=== PATIENT | female | born 1970 | race Caucasian/White ===

== ENCOUNTER → 2018-11-11 | Outpatient (CLI) | payer OTHER ==
--- NOTE | 2018-11-14 11:12 | REP ---
MRI CERVICAL SPINE WITHOUT CONTRAST: HISTORY: Trapezius muscle spasm of the neck. Pain in the thoracic spine. No comparison cervical spine imaging. The patient reports injury 2 weeks prior. Right-sided neck pain. TECHNIQUE: Sagittal and axial T1- and T2-weighted scans are acquired in the usual fashion with and without fat saturation. Sequences include spin echo, turbo spin-echo, and STIR imaging sequences. MRI FINDINGS: Magnetic field susceptibility artifact is seen emanating from ventral discectomy fusion plating at the C5-C7 levels. There is straightening of the cervical spine. Cervical cord is normal in coarse, caliber and signal intensity. There is right-sided uncovertebral spurring at C4-5 producing neural foraminal narrowing. There is mild uncovertebral spurring on the right at C3-4 as well. There is some residual disc bulging to the left of midline at the C6-7. Mild central bulging is seen at C5-6. No other abnormality. IMPRESSION: Status post ventral discectomy and fusion plating C5-C7. There is prominent right-sided neural foraminal narrowing at C4-5 and mild right-sided neural foraminal narrowing at C3-4 due to uncovertebral spurring and disc bulging. Canal size is borderline at C4-5. Electronically Signed by Jordon Ocampo MD 11/14/2018 11:25 A
--- NOTE | 2018-11-14 11:14 | REP ---
MRI THORACIC SPINE WITHOUT CONTRAST: HISTORY: Trapezius muscle spasm. Right-sided neck pain. Thoracic back pain. The patient reports injury 2 weeks prior. No comparison thoracic spine imaging. TECHNIQUE: Sagittal and axial T1- and T2-weighted scans are acquired in the usual fashion with and without fat saturation. Sequences include spin echo, turbo spin-echo, and STIR imaging sequences. MRI FINDINGS: There is an 8 mm benign hemangioma in the T7 vertebral body. Cortical and medullary bone signal intensity are otherwise normal. There is minimal discogenic spurring along the anterior margin of the thoracic spine. No thoracic disc herniation is seen. There is minimal disc bulging at T6-T7. No cord compressive lesion is seen. No foraminal lesion is observed. There is a small thoracic cord syrinx cavity. This is present from the T6-7 disc level through the T8 level. It measures 3 mm in greatest anteroposterior dimension and there is very slight expansion of the cord at this level. No mass lesion is visible on noncontrast MR images. The tip of the conus medullaris is normal in position and appearance at T12. No other intramedullary lesion is seen. There is no evidence of epidural fluid collection or mass. Study is otherwise unremarkable. IMPRESSION: Small syrinx cavity in the mid thoracic spine at the T7 level. Consider postcontrast MR imaging of the thoracic spine. Minimal discogenic changes. Otherwise negative. Electronically Signed by Jordon Ocampo MD 11/14/2018 11:25 A
== END ==
LOC: M RAD 16:38
PROVIDERS: ATTEND Nurse Practitioner Family
DX: M62.838 Other muscle spasm (principal); M54.2 Cervicalgia; Z98.890 Other specified postprocedural states; D18.09 Hemangioma of other sites; M51.24 Other intervertebral disc displacement, thoracic region; G95.0 Syringomyelia and syringobulbia; Z98.1 Arthrodesis status

== ENCOUNTER → 2020-02-21 | Outpatient (CLI) | payer BC ==
--- NOTE | 2020-02-21 21:15 | REPVR ---
PROCEDURE INFORMATION: Exam: MR Lumbar Spine Without Contrast. Exam date and time: 02/21/2020 6:43 PM Age: 49 years old Clinical indication: Low back pain; Additional info: Lumbago with sciatica TECHNIQUE: Imaging protocol: Multiplanar magnetic resonance images of the lumbar spine without intravenous contrast. COMPARISON: No relevant prior studies available. FINDINGS: Vertebrae: Normal alignment. Mild degenerative endplate edema in the L4 superior endplate. Otherwise normal marrow signal. Spinal cord: Conus medullaris terminates in normal position at L1. Conus medullaris is unremarkable. L1-L2: No disc herniation or spinal stenosis. No significant foraminal stenosis. Mild facet DJD. L2-L3: No disc herniation or spinal stenosis. No significant foraminal stenosis. Mild facet DJD. L3-L4: No disc herniation or spinal stenosis. No significant foraminal stenosis. Mild facet DJD. L4-L5: No disc herniation or spinal stenosis. No significant foraminal stenosis. Mild facet DJD. L5-S1: No disc herniation or spinal stenosis. No significant foraminal stenosis. Mild facet DJD. Soft tissues: Unremarkable. IMPRESSION: 1. Mild multilevel facet DJD. 2. No disc herniation or spinal stenosis. Electronically signed by: Kun Shen On 02/21/2020 21:15:01 PM
== END ==
LOC: M RAD 17:32
DX: M54.41 Lumbago with sciatica, right side (principal); M51.36 Other intervertebral disc degeneration, lumbar region

== ENCOUNTER → 2020-06-21 | Outpatient (CLI) | payer BC ==
[~2020-06-21] MED LIST: ISOVUE-300 61% 50ML VIAL As Ordered ONE; PROHANCE 279.3MG/ML 5ML VIAL As Ordered ONE
--- NOTE | 2020-06-21 09:16 | REP ---
INDICATION: PAIN IN RIGHT HIP COMPARISON: None. TECHNIQUE: Coronal T1, STIR through the pelvis, axial, coronal, sagittal T2 fat sat, post arthrogram axial T1 fat sat, coronal T1 fat sat, sagittal T1 fat sat right hip. FINDINGS: There is moderate chondromalacia at the right hip joint with subchondral marrow edema throughout the acetabulum. Otherwise no occult fracture is seen. There is a small joint effusion. There is no evidence of avascular necrosis. There is a tear of the anterior aspect of the superior labrum. No paralabral cyst is seen. There is mild increased signal along the greater trochanters bilaterally compatible with mild bilateral greater trochanteric tendonobursitis. No other abnormal signal is seen in the surrounding soft tissues. Incidental note is made of a complex cystic structure in the left adnexa with a maximum diameter of 3.5 cm. IMPRESSION: Moderate arthritic changes right hip joint with subchondral marrow edema in the acetabulum. Small joint effusion. There is a tear of the anterior aspect of the superior labrum. There are findings compatible with mild bilateral greater trochanteric tendonobursitis. Partially visualized 3.5 cm complex cystic structure left adnexa. Recommend pelvic ultrasound for further evaluation. <Electronically signed by Lopez Menendez > 06/21/20 [id number]
--- NOTE | 2020-06-21 17:26 | REP ---
INDICATION: PAIN IN RIGHT HIP. COMPARISON: None. TECHNIQUE: The procedure was performed under the direction supervision of Dr. Menendez. The benefits and risks including but not limited to pain, infection, bleeding and anaphylaxis were explained to the patient and informed consent was obtained. The right femoral neck was localized using fluoroscopic guidance. Skin was prepped and draped in a sterile fashion. 1% lidocaine was used as a local anesthetic. Using fluoroscopic guidance, and last image hold technology, a 22 gauge spinal needle was inserted and advanced to the femoral neck. 0.5 ml of Isovue-300 was injected to verify placement. 11 ml of a solution containing 20 ml of sterile saline and 0.15 ml of ProHance was injected into the joint. The needle was removed and the patient was taken to MRI for postprocedural imaging. The patient tolerated the procedure well and there were no immediate complications. Less than 6 seconds of fluoro time was utilized for this procedure. FINDINGS: None IMPRESSION: Fluoro guidance for right hip MRI arthrogram injection. <Electronically signed by Andrew Collins > 06/21/20 1517 <Electronically signed by Lopez Menendez > 06/21/20 [id number]
== END ==
LOC: M RADPRO 06:38
PROVIDERS: ATTEND Physician Assistant
DX: R93.7 Abnormal findings on diagnostic imaging of other parts of musculoskeletal system (principal); M25.551 Pain in right hip
CPT/HCPCS: 27093; 73723; 77002; A9576; Q9967

== ENCOUNTER → 2020-08-07 | Outpatient (CLI) | payer BC ==
[~2020-08-07] MED LIST changes: +LIDOCAINE 1% MDV 20ML VIAL As Ordered ONE; -PROHANCE 279.3MG/ML 5ML VIAL As Ordered ONE; +TRIAMCINOLONE ACETONIDE SUSP 40 MG/ML VIAL (J3301) As Ordered ONE
--- NOTE | 2020-08-07 16:53 | REP ---
INDICATION: OTH ARTICULAR CARTILAE DISORDERS RT HIP. COMPARISON: None. TECHNIQUE: The procedure was performed under the direct supervision of Dr. Ocampo. The benefits and risks including but not limited to pain infection and bleeding and anaphylaxis were explained to the patient and informed consent was obtained. The right femoral neck was localized using fluoroscopic guidance. The skin was prepped and draped in a sterile fashion. 1% lidocaine was used as a local anesthetic. Using fluoroscopic guidance, and last image hold technology, a 22-gauge spinal needle was inserted and advanced to the femoral neck. 0.5 ml of Isovue-300 was injected to verify placement. Six ml of a solution containing 5 ml of 1% Xylocaine and 1 mL of Kenalog 40 mg was injected. The needle was then removed. The patient tolerated the procedure well and there were no immediate complications. Less than 6 seconds of fluoro time was utilized for this procedure. FINDINGS: None IMPRESSION: Fluoro guidance for right hip injection. <Electronically signed by Andrew Collins > 08/07/20 [id number] <Electronically signed by Rinku Ocampo > 08/07/20 1328
== END ==
LOC: M RADPRO 10:19
PROVIDERS: ATTEND Physician Assistant
DX: M24.151 Other articular cartilage disorders, right hip (principal)
CPT/HCPCS: 20610; 77002; J3301; Q9967